=== PATIENT | female | born 1930 | race Caucasian/White ===

== ENCOUNTER 2016-11-06 13:26 | Outpatient (CLI) | payer MEDICARE, OTHER ==
--- NOTE | 2016-11-06 18:56 | XRAY Report ---
RIGHT SHOULDER, THREE VIEWS: 11/06/2016 HISTORY: Right shoulder pain. COMPARISON: Chest CT 09/02/2014. FINDINGS: There is extensive chronic deformity of the right shoulder. The humeral head is superiorly migrated. The distal clavicle is deformed and attenuated. There is no normal-appearing acromion. In its place is a thin remnant of bone, which appears separate from the remainder of the scapula. This may be postsurgical, posttraumatic, or related to chronic rotator cuff pathology. The glenoid is deformed with broadening and slight superior angulation. There is a small amount of heterotopic bone formation about the shoulder. The humeral head is demineralized and small cysts are present. The included portions of the right hemithorax are intact. IMPRESSION: SEVERE DEFORMITY OF THE RIGHT SHOULDER, LIKELY THE RESULT OF PRIOR TRAUMA, DEGENERATIVE CHANGE, AND/OR CHRONIC ROTATOR CUFF PATHOLOGY. JOB #: [id number] EXT JOB #: [id number] PA
== END 2016-11-06 13:27 | disposition home or self-care (01) ==
LOC: DI.N 13:26
PROVIDERS: ATTEND Internal Medicine
DX: M21.821 Other specified acquired deformities of right upper arm (principal)

== ENCOUNTER 2018-01-23 01:30 | Outpatient (CLI) | payer MEDICARE, OTHER | END 2018-01-23 01:31 | disposition short-term general hospital (02) | LOC: EMS 01:30 | PROVIDERS: ATTEND Surgery | DX: R07.9 Chest pain, unspecified (principal) | CPT/HCPCS: A0425; A0433 ==